=== PATIENT | male | born 1965 | race Caucasian/White ===

== ENCOUNTER 2020-04-06 08:45 | Emergency (ER) | payer SELFPAY ==
[2020-04-06] MEDS ORDERED: RINGERS SOLUTION,LACTATED 1,000 ML IV ONE (09:13)
--- NOTE | 2020-04-06 09:13 | ER Document Report ---
ED Blood Sugar Problem - General Chief Complaint: High Blood Sugar Stated Complaint: HIGH BLOOD SUGAR Time Seen by Provider: 04/06/20 09:04 Primary Care Provider: CHANDU CASTLE MD [ACTIVE STAFF] - Follow up as needed Mode of Arrival: Ambulatory Information source: Patient Notes: 54-year-old male past medical history significant for hypertension, diabetes, neuropathy presents to the emergency room complaining of intermittent headaches for the past few days. Denies any head trauma head injury. Patient states he moved here a month ago from [place] where he was homeless and has not been on any medications in several months. He states he gets headaches when his blood sugars are high he has been trying to monitor his diet at home but has not been checking his blood sugars at home. States he is attempting to get an appointment with [facility] but was told he needs to see a provider before they will see him. He took ibuprofen for his headache which he states is helping. Describes it as a generalized aching headache. No history of migraines, no nausea, no sudden thunderclap, not worst headache of his life. TRAVEL OUTSIDE OF THE [place] IN LAST 30 DAYS: No Past Medical History - General Information source: Patient - Social History Smoking Status: Never Smoker Frequency of alcohol use: None Drug Abuse: None Lives with: Family Family History: DM Review of Systems - Review of Systems Constitutional: No symptoms reported EENT: No symptoms reported Cardiovascular: No symptoms reported Respiratory: No symptoms reported Gastrointestinal: No symptoms reported Musculoskeletal: No symptoms reported Skin: No symptoms reported Hematologic/Lymphatic: No symptoms reported Neurological/Psychological: Headaches -: Yes All other systems reviewed and negative Physical Exam - Vital signs Vitals: Temp Pulse Resp BP Pulse Ox 97.9 F 61 16 153/64 H 98 04/06/20 08:52 04/06/20 08:52 04/06/20 08:52 04/06/20 08:52 04/06/20 08:52 - General General appearance: Appears well, Alert In distress: Mild - HEENT Head: Normocephalic, Atraumatic Eyes: Normal Pupils: PERRL - Respiratory Respiratory status: No respiratory distress Chest status: Nontender Breath sounds: Normal Chest palpation: Normal - Cardiovascular Rhythm: Regular Heart sounds: Normal auscultation Murmur: No - Back Back: Normal, Nontender. No: CVA tenderness - Extremities General upper extremity: Normal inspection, Nontender, Normal color, Normal ROM, Normal temperature General lower extremity: Normal inspection, Nontender, Normal color, Normal ROM, Normal temperature, Normal weight bearing. No: Clarence's sign - Neurological Neuro grossly intact: Yes Cognition: Normal Orientation: AAOx4 [place] Coma Scale Eye Opening: Spontaneous [place] Coma Scale Verbal: Oriented [place] Coma Scale Motor: Obeys Commands [place] Coma Scale Total: 15 Speech: Normal Motor strength normal: LUE, RUE, LLE, RLE Sensory: Normal - Skin Skin Temperature: Warm Skin Moisture: Dry Skin Color: Normal Course - Re-evaluation Re-evalutation: 04/06/20 10:09 Patient with a self-reported history of diabetes, hypertension, neuropathy, headache is improving. States headache is almost gone. Will check labs, IV flu ids, reevaluate. 04/06/20 10:15 Patient's resting comfortably headache has resolved. Reviewed lab results with patient. Hemoglobin A1c of 9.2 glucose 243, remaining labs stable. Will discharge patient home on metformin 500 mg 1 p.o. twice daily. Will be given a two-week supply. Patient was counseled on the importance of following up with a primary care physician for management of his diabetes and hypertension and neuropathy. He was given strict return to the emergency room guidelines. He is to return for any new or worsening symptoms. All questions were answered. Patient verbalized understanding and agreed with plan of care. - Vital Signs Vital signs: Temp Pulse Resp BP Pulse Ox 98.7 F 65 18 148/82 H 96 04/06/20 11:38 04/06/20 11:38 04/06/20 11:38 04/06/20 11:38 04/06/20 11:38 - Laboratory Result Diagrams: 04/06/20 09:03 04/06/20 09:03 Laboratory results interpreted by me: 04/06/20 04/06/20 04/06/20 09:03 09:03 09:30 Sodium 136.7 L BUN 21 H Glucose 243 H Hemoglobin A1c % 9.2 H Urine Protein 100 H Discharge - Discharge Clinical Impression: Hyperglycemia Headache Qualifiers: Headache type: unspecified Headache chronicity pattern: episodic headache Intractability: not intractable Qualified Code(s): R51 - Headache Condition: Stable Disposition: HOME, SELF-CARE Instructions: Headache ([facility]), Hyperglycemia ([facility]) Additional Instructions: Continue to monitor your diet, start metformin as prescribed. Outpatient follow-up with primary care as discussed. Return for any new or worsening symptoms. Prescriptions: Metformin HCl [Glucophage 500 mg Tablet] 500 mg PO BID 14 Days #28 tablet Referrals: CHANDU CASTLE MD [ACTIVE STAFF] - Follow up as needed
[2020-04-06 09:22] LABS: ABSOLUTE BASOPHILS # (AUTO) 0.1 10^3/uL (0.0-0.2); ABSOLUTE EOSINOPHILS # (AUTO) 0.3 10^3/uL (0.0-0.6); ABSOLUTE LYMPHOCYTES (AUTO) 3.3 10^3/uL (0.5-4.7); ABSOLUTE MONOCYTES (AUTO) 0.5 10^3/uL (0.1-1.4); ABSOLUTE NEUT (AUTO) 5.6 10^3/uL (1.7-8.2); BASOPHILS % (AUTO) 0.7 % (0-2); EOSINOPHILS % (AUTO) 3.2 % (0-6); HEMATOCRIT 43.7 % (37.9-51.0); HEMOGLOBIN 14.9 g/dL (13.5-17.0); LYMPHOCYTES % (AUTO) 33.5 % (13-45); MEAN CORPUSCULAR HEMOGLOBIN 29.7 pg (27.0-33.4); MEAN CORPUSCULAR HGB CONC 34.1 g/dL (32.0-36.0); MEAN CORPUSCULAR VOLUME 87 fl (80-97); MONOCYTES % (AUTO) 5.5 % (3-13); PLATELET COUNT 322 10^3/uL (150-450); RED BLOOD COUNT 5.03 10^6/uL (4.35-5.55); RED CELL DISTRIBUTION WIDTH 13.6 % (11.5-14.0); SEGMENTED NEUTROPHILS % (AUTO) 57.1 % (42-78); TOTAL CELLS COUNTED % (AUTO) 100 %; WHITE BLOOD COUNT 9.8 10^3/uL (4.0-10.5)
[2020-04-06 09:29] LABS: ALKALINE PHOSPHATASE 107 U/L (38-126); ANION GAP 8 (5-19); ASPARTATE AMINO TRANSFERASE 22 U/L (17-59); BILIRUBIN,TOTAL 0.4 mg/dL (0.2-1.3); BLOOD UREA NITROGEN 21 mg/dL (7-20); CALCIUM 9.4 mg/dL (8.4-10.2); CARBON DIOXIDE 26 mmol/L (22-30); CHLORIDE 103 mmol/L (98-107); GLUCOSE 243 mg/dL (75-110); POTASSIUM 4.8 mmol/L (3.6-5.0); TOTAL PROTEIN 7.9 g/dL (6.3-8.2)
[2020-04-06 09:58] LABS: APPEARANCE,URINE SLIGHTLY-CLOUDY; BILIRUBIN,URINE NEGATIVE (NEGATIVE); COLOR,URINE YELLOW; GLUCOSE, URINE NEGATIVE (NEGATIVE); KETONES,URINE NEGATIVE (NEGATIVE); LEUKOCYTE ESTERASE,URINE NEGATIVE (NEGATIVE); NITRITE,URINE NEGATIVE (NEGATIVE); PROTEIN,URINE 100 mg/dL (NEGATIVE); URINE SPECIFIC GRAVITY 1.021; UROBILINOGEN,URINE NEGATIVE mg/dL (<2.0)
[2020-04-06 11:39] VITALS: BP 148/82
== END 2020-04-06 11:39 | disposition home or self-care (01) ==
LOC: ER 08:45
DX: E11.65 Type 2 diabetes mellitus with hyperglycemia (principal); E11.40 Type 2 diabetes mellitus with diabetic neuropathy, unspecified; R51 Headache; I10 Essential (primary) hypertension
CPT/HCPCS: 99284; 96360; 36415; 85025; 80053; 81001; 83036; J7120

== ENCOUNTER → 2020-08-03 | Outpatient (CLI) | payer SELFPAY ==
--- NOTE | 2020-08-03 14:26 | RADIOLOGY REPORT (SQ) ---
EXAM DESCRIPTION: KNEE LEFT 3 VIEWS; KNEE RIGHT 3 VIEWS IMAGES COMPLETED DATE/TIME: 08/03/2020 2:15 pm REASON FOR STUDY: DJD KNEE M17.12 UNILATERAL PRIMARY OSTEOARTHRITIS, LEFT KNEE M17.11 UNILATERAL P RIMARY OSTEOARTHRITIS, RIGHT KNEE COMPARISON: None. NUMBER OF VIEWS: Three views. TECHNIQUE: AP, lateral, and sunrise patella radiographic images acquired of the right and left knee. LIMITATIONS: None. FINDINGS: MINERALIZATION: Normal. BONES: No acute fracture or dislocation. No worrisome bone lesions. No significant osteophytes. JOINT: Joint space narrowing in all compartments bilaterally. Changes are most marked in the medial compartments. OTHER: No other significant finding. 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 TECHNICAL DOCUMENTATION: JOB ID: [id number] 2010 [employer]- All Rights Reserved Reading location - IP/workstation name: [email or web address]
--- NOTE | 2020-08-03 14:26 | RADIOLOGY REPORT (SQ) ---
EXAM DESCRIPTION: KNEE LEFT 3 VIEWS; KNEE RIGHT 3 VIEWS IMAGES COMPLETED DATE/TIME: 08/03/2020 2:15 pm REASON FOR STUDY: DJD KNEE M17.12 UNILATERAL PRIMARY OSTEOARTHRITIS, LEFT KNEE M17.11 UNILATERAL P RIMARY OSTEOARTHRITIS, RIGHT KNEE COMPARISON: None. NUMBER OF VIEWS: Three views. TECHNIQUE: AP, lateral, and sunrise patella radiographic images acquired of the right and left knee. LIMITATIONS: None. FINDINGS: MINERALIZATION: Normal. BONES: No acute fracture or dislocation. No worrisome bone lesions. No significant osteophytes. JOINT: Joint space narrowing in all compartments bilaterally. Changes are most marked in the medial compartments. OTHER: No other significant finding. 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 TECHNICAL DOCUMENTATION: JOB ID: [id number] 2010 [employer]- All Rights Reserved Reading location - IP/workstation name: [email or web address]
== END ==
LOC: RAD 13:45
PROVIDERS: ATTEND Nurse Practitioner Primary Care
DX: M17.11 Unilateral primary osteoarthritis, right knee (principal); M17.12 Unilateral primary osteoarthritis, left knee